=== PATIENT | male | born 1960 | race Asian ===

== ENCOUNTER 2018-10-19 17:28 | Inpatient (IN) | payer OTHER ==
[~2018-10-19] VITALS: Ht 177.8 cm; Wt 74.4 kg
[2018-10-19] MEDS ORDERED: ACETAMINOPHEN 650 MG/20.3 ML SOLUTION UDCUP GT PRN ×2 (20:30)
[2018-10-19] MEDS ORDERED: HALOPERIDOL LACTATE 5 MG/ML VIAL IM PRN (20:30)
[2018-10-19] MEDS ORDERED: DOCUSATE SODIUM 283 MG/5 ML MINI-ENEMA PR PRN (20:30)
[2018-10-19] MEDS: DOCUSATE SODIUM 100 MG CAPSULE GT SCH (21:39)
[2018-10-19 22:18] VITALS: BP 133/67
[2018-10-19] MEDS: CHLORHEXIDINE GLUCONATE 0.12% 15 ML UDCUP ORAL RINSE PO SCH (23:28)
[2018-10-19] MEDS ORDERED: INSULIN REGULAR, HUMAN 100 UNITS/ML SQ PRN (23:30)
[2018-10-19] MEDS ORDERED: DEXTROSE 50%-WATER 25 GM/50 ML SYRINGE IVP PRN (23:30)
[2018-10-20] VITALS: BP 112/71
[2018-10-20 00:04] LABS: GLUCOMETER DEV NAME(LOC) 2WR.2; GLUCOSE,POINT OF CARE 130 MG/DL (70-110)
[2018-10-20 00:04] LABS: GLUCOMETER DEV NAME(LOC) 2WR.2; GLUCOSE,POINT OF CARE 93 MG/DL (70-110)
[2018-10-20 05:44] LABS: GLUCOMETER DEV NAME(LOC) 2WR.2; GLUCOSE,POINT OF CARE 109 MG/DL (70-110)
[2018-10-20 06:50] LABS: BASOPHILS % (AUTO) 0.2 % (0.0-2.0); EOSINOPHILS % (AUTO) 4.6 % (1.0-6.0); HEMATOCRIT 46.2 % (41-53); HEMOGLOBIN 15.5 g/dL (13.5-17.5); LYMPHOCYTES # (AUTO) 2.9 K/uL (1.0-4.8); LYMPHOCYTES % (AUTO) 21.5 % (22.0-44.0); MEAN CORPUSCULAR HEMOGLOBIN 30.8 pg (26.0-34.0); MEAN CORPUSCULAR HGB CONC 33.5 G/dL (31.0-37.0); MEAN CORPUSCULAR VOLUME 92 fL (80-100); MONOCYTES # (AUTO) 1.3 K/uL (0.1-1.0); MONOCYTES % (AUTO) 9.5 % (2.0-9.0); NEUTROPHILS # (AUTO) 8.7 K/uL (1.8-7.7); NEUTROPHILS % (AUTO) 64.2 % (40.0-70.0); PLATELET COUNT (AUTO) 359 K/uL (150-450); RED BLOOD CELL COUNT(AUTO) 5.03 MIL/uL (4.50-5.90); RED CELL DISTRIBUTION WIDTH 13.1 % (11.5-14.5)
[2018-10-20 07:00] LABS: ALANINE AMINOTRANSFERASE 304 U/L (12-78); ALBUMIN 2.6 g/dL (3.4-5.0); ALKALINE PHOSPHATASE 137 U/L (46-116); ANION GAP 5 mmol/L (8-16); ASPARTATE AMINOTRANSFERASE 101 U/L (15-37); BILIRUBIN,TOTAL 0.3 mg/dL (0.1-1.0); CALCIUM, TOTAL 8.5 mg/dL (8.8-10.5); CARBON DIOXIDE 31 mmol/L (22-29); CHLORIDE 101 mmol/L (98-107); CREATININE 1.05 mg/dL (0.60-1.30); GLOMERULAR FILTR. RATE CALC > 60 mL/min (>60); GLUCOSE,RANDOM 110 mg/dL (70-110); POTASSIUM 4.2 mmol/L (3.5-5.1); SODIUM SERUM 137 mmol/L (136-145); TOTAL PROTEIN, SERUM 7.5 g/dL (6.4-8.2); UREA NITROGEN, BLOOD 27 mg/dL (7-18)
[2018-10-20 07:30] VITALS: BP 98/63
[2018-10-20] MEDS: DOCUSATE SODIUM 100 MG CAPSULE GT SCH ×2 (07:46→20:10)
[2018-10-20] MEDS: CHLORHEXIDINE GLUCONATE 0.12% 15 ML UDCUP ORAL RINSE PO SCH ×2 (07:46→20:11)
[2018-10-20] MEDS: LISINOPRIL 20 MG TABLET GT SCH (07:53)
[2018-10-20] MEDS: AmLODIPine BESYLATE 10 MG TABLET GT SCH (07:53)
[2018-10-20 14:03] LABS: GLUCOMETER DEV NAME(LOC) 2WR.1; GLUCOSE,POINT OF CARE 102 MG/DL (70-110)
[2018-10-20 15:49] VITALS: BP 120/76
[2018-10-20 19:43] LABS: GLUCOMETER DEV NAME(LOC) 2WR.1; GLUCOSE,POINT OF CARE 106 MG/DL (70-110)
[2018-10-20] MEDS: FAMOTIDINE 20 MG TABLET GT SCH (20:11)
[2018-10-21 00:57] VITALS: BP 111/72
[2018-10-21 02:14] LABS: GLUCOMETER DEV NAME(LOC) 2WR.2; GLUCOSE,POINT OF CARE 103 MG/DL (70-110)
[2018-10-21 05:44] LABS: GLUCOMETER DEV NAME(LOC) 2WR.2; GLUCOSE,POINT OF CARE 98 MG/DL (70-110)
[2018-10-21 06:55] LABS: BASOPHILS % (AUTO) 0.5 % (0.0-2.0); EOSINOPHILS % (AUTO) 5.7 % (1.0-6.0); HEMATOCRIT 44.2 % (41-53); HEMOGLOBIN 14.9 g/dL (13.5-17.5); LYMPHOCYTES # (AUTO) 2.6 K/uL (1.0-4.8); LYMPHOCYTES % (AUTO) 19.3 % (22.0-44.0); MEAN CORPUSCULAR HEMOGLOBIN 30.2 pg (26.0-34.0); MEAN CORPUSCULAR HGB CONC 33.7 G/dL (31.0-37.0); MEAN CORPUSCULAR VOLUME 90 fL (80-100); MONOCYTES # (AUTO) 1.1 K/uL (0.1-1.0); MONOCYTES % (AUTO) 8.5 % (2.0-9.0); NEUTROPHILS # (AUTO) 8.8 K/uL (1.8-7.7); PLATELET COUNT (AUTO) 368 K/uL (150-450); RED BLOOD CELL COUNT(AUTO) 4.93 MIL/uL (4.50-5.90); RED CELL DISTRIBUTION WIDTH 13.1 % (11.5-14.5)
[2018-10-21 07:09] LABS: ALBUMIN 2.6 g/dL (3.4-5.0); BILIRUBIN,DIRECT 0.1 mg/dL (0.00-0.20); BILIRUBIN,TOTAL 0.3 mg/dL (0.1-1.0); TOTAL PROTEIN, SERUM 7.7 g/dL (6.4-8.2)
[2018-10-21 07:20] VITALS: BP 108/75
[2018-10-21] MEDS: LISINOPRIL 20 MG TABLET GT SCH (08:05)
[2018-10-21] MEDS: DOCUSATE SODIUM 100 MG CAPSULE GT SCH ×2 (08:05→20:04)
[2018-10-21] MEDS: CHLORHEXIDINE GLUCONATE 0.12% 15 ML UDCUP ORAL RINSE PO SCH ×2 (08:05→20:04)
[2018-10-21] MEDS: FAMOTIDINE 20 MG TABLET GT SCH ×2 (08:05→20:04)
[2018-10-21] MEDS: AmLODIPine BESYLATE 10 MG TABLET GT SCH (08:05)
[2018-10-21 10:50] LABS: APPEARANCE,URINE CLEAR (CLEAR); BILIRUBIN,URINE NEGATIVE (NEGATIVE); GLUCOSE, URINE (UA) NEGATIVE (NEGATIVE); KETONES,URINE NEGATIVE (NEGATIVE); LEUKOCYTE ESTERASE ,URINE NEGATIVE (NEGATIVE); NITRATE,URINE NEGATIVE (NEGATIVE); OCCULT BLOOD,URINE NEGATIVE (NEGATIVE); PH,URINE 6.5 (5.0-8.0); PROTEIN,URINE NEGATIVE (NEGATIVE); UROBILINOGEN,URINE 0.2 mg/dL (<=1.0)
[2018-10-21 10:55] LABS: BACTERIA,URINE None Seen /HPF (None Seen); RBC,URINE None Seen /HPF (0-2); WBC,URINE None Seen /HPF (0-5)
[2018-10-21 12:44] LABS: GLUCOMETER DEV NAME(LOC) 2WR.2; GLUCOSE,POINT OF CARE 113 MG/DL (70-110)
[2018-10-21 15:07] VITALS: BP 102/69
[2018-10-21 18:24] LABS: GLUCOMETER DEV NAME(LOC) 2WR.1; GLUCOSE,POINT OF CARE 114 MG/DL (70-110)
[2018-10-21] MEDS: MELATONIN 3 MG TABLET PO PRN (20:04)
[2018-10-21] MEDS: ENOXAPARIN SODIUM 30 MG/0.3 ML PF SYRINGE SQ SCH (20:04)
[2018-10-22] VITALS: BP 113/69
[2018-10-22 02:09] LABS: GLUCOMETER DEV NAME(LOC) 2WR.1; GLUCOSE,POINT OF CARE 95 MG/DL (70-110)
[2018-10-22 06:35] LABS: GLUCOMETER DEV NAME(LOC) 2WR.2; GLUCOSE,POINT OF CARE 103 MG/DL (70-110)
[2018-10-22 08:07] VITALS: BP 116/76
[2018-10-22] MEDS: ENOXAPARIN SODIUM 30 MG/0.3 ML PF SYRINGE SQ SCH ×2 (09:24→21:19)
[2018-10-22] MEDS: LISINOPRIL 20 MG TABLET GT SCH (09:24)
[2018-10-22] MEDS: FAMOTIDINE 20 MG TABLET GT SCH ×2 (09:24→21:19)
[2018-10-22] MEDS: CHLORHEXIDINE GLUCONATE 0.12% 15 ML UDCUP ORAL RINSE PO SCH ×2 (09:24→21:19)
[2018-10-22] MEDS: AmLODIPine BESYLATE 10 MG TABLET GT SCH (09:24)
[2018-10-22] MEDS: DOCUSATE SODIUM 100 MG CAPSULE GT SCH ×2 (09:24→21:19)
[2018-10-22 12:04] LABS: GLUCOMETER DEV NAME(LOC) 2WR.2; GLUCOSE,POINT OF CARE 109 MG/DL (70-110)
[2018-10-22 16:08] VITALS: BP 116/75
[2018-10-22 18:44] LABS: GLUCOMETER DEV NAME(LOC) 2WR.2; GLUCOSE,POINT OF CARE 102 MG/DL (70-110)
[2018-10-22] MEDS: MELATONIN 3 MG TABLET PO PRN (21:20)
[2018-10-22 23:49] VITALS: BP 122/73
[2018-10-22 23:49] LABS: GLUCOMETER DEV NAME(LOC) 2WR.2; GLUCOSE,POINT OF CARE 100 MG/DL (70-110)
[2018-10-23 05:39] LABS: GLUCOMETER DEV NAME(LOC) 2WR.1; GLUCOSE,POINT OF CARE 99 MG/DL (70-110)
[2018-10-23] MEDS: LISINOPRIL 20 MG TABLET GT SCH (08:42)
[2018-10-23] MEDS: FAMOTIDINE 20 MG TABLET GT SCH ×2 (08:42→20:21)
[2018-10-23] MEDS: DOCUSATE SODIUM 100 MG CAPSULE GT SCH ×2 (08:43→20:21)
[2018-10-23] MEDS: AmLODIPine BESYLATE 10 MG TABLET GT SCH (08:43)
[2018-10-23] MEDS: CHLORHEXIDINE GLUCONATE 0.12% 15 ML UDCUP ORAL RINSE PO SCH ×2 (08:43→20:21)
[2018-10-23] MEDS: ENOXAPARIN SODIUM 30 MG/0.3 ML PF SYRINGE SQ SCH ×2 (08:43→20:22)
[2018-10-23 08:53] VITALS: BP 114/91
[2018-10-23 08:54] VITALS: BP 101/77
[2018-10-23 15:45] VITALS: BP 105/68
[2018-10-23 18:39] LABS: GLUCOMETER DEV NAME(LOC) 2WR.1; GLUCOSE,POINT OF CARE 100 MG/DL (70-110)
[2018-10-23 23:47] VITALS: BP 128/88
[2018-10-24] MEDS: MELATONIN 3 MG TABLET PO PRN (00:21)
[2018-10-24 05:39] LABS: GLUCOMETER DEV NAME(LOC) 2WR.2; GLUCOSE,POINT OF CARE 108 MG/DL (70-110)
[2018-10-24 08:10] VITALS: BP 123/81
[2018-10-24] MEDS: LISINOPRIL 20 MG TABLET GT SCH (09:23)
[2018-10-24] MEDS: FAMOTIDINE 20 MG TABLET GT SCH ×2 (09:24→21:06)
[2018-10-24] MEDS: AmLODIPine BESYLATE 10 MG TABLET GT SCH (09:24)
[2018-10-24] MEDS: CHLORHEXIDINE GLUCONATE 0.12% 15 ML UDCUP ORAL RINSE PO SCH ×2 (09:24→21:06)
[2018-10-24] MEDS: ENOXAPARIN SODIUM 30 MG/0.3 ML PF SYRINGE SQ SCH ×2 (09:24→21:06)
[2018-10-24] MEDS: DOCUSATE SODIUM 100 MG CAPSULE GT SCH ×2 (09:24→21:00)
[2018-10-24] MEDS: NICOTINE 21 MG/24 HOUR PATCH TD SCH (12:20)
[2018-10-24 15:30] VITALS: BP 101/67
[2018-10-24] MEDS: DOCUSATE SODIUM 283 MG/5 ML MINI-ENEMA PR SCH (19:37)
[2018-10-24] MEDS ORDERED: TraZODone HCL 50 MG TABLET PO SCH (21:00)
[2018-10-24 21:59] LABS: GLUCOMETER DEV NAME(LOC) 2WR.2; GLUCOSE,POINT OF CARE 113 MG/DL (70-110)
[2018-10-25 00:21] VITALS: BP 108/69
[2018-10-25 05:39] LABS: GLUCOMETER DEV NAME(LOC) 2WR.1; GLUCOSE,POINT OF CARE 106 MG/DL (70-110)
[2018-10-25 06:27] LABS: BASOPHILS % (AUTO) 0.6 % (0.0-2.0); EOSINOPHILS % (AUTO) 6.8 % (1.0-6.0); HEMATOCRIT 45.1 % (41-53); HEMOGLOBIN 14.9 g/dL (13.5-17.5); LYMPHOCYTES # (AUTO) 3.3 K/uL (1.0-4.8); LYMPHOCYTES % (AUTO) 22.5 % (22.0-44.0); MEAN CORPUSCULAR HEMOGLOBIN 29.8 pg (26.0-34.0); MEAN CORPUSCULAR HGB CONC 33.1 G/dL (31.0-37.0); MEAN CORPUSCULAR VOLUME 90 fL (80-100); MONOCYTES # (AUTO) 1.3 K/uL (0.1-1.0); MONOCYTES % (AUTO) 8.6 % (2.0-9.0); NEUTROPHILS # (AUTO) 9.1 K/uL (1.8-7.7); NEUTROPHILS % (AUTO) 61.5 % (40.0-70.0); PLATELET COUNT (AUTO) 341 K/uL (150-450); RED BLOOD CELL COUNT(AUTO) 5.01 MIL/uL (4.50-5.90); RED CELL DISTRIBUTION WIDTH 13.3 % (11.5-14.5)
[2018-10-25 06:57] LABS: ALANINE AMINOTRANSFERASE 262 U/L (12-78); ALBUMIN 2.7 g/dL (3.4-5.0); ALKALINE PHOSPHATASE 118 U/L (46-116); ANION GAP 4 mmol/L (8-16); ASPARTATE AMINOTRANSFERASE 87 U/L (15-37); BILIRUBIN,TOTAL 0.3 mg/dL (0.1-1.0); CALCIUM, TOTAL 8.8 mg/dL (8.8-10.5); CARBON DIOXIDE 32 mmol/L (22-29); CHLORIDE 100 mmol/L (98-107); CREATININE 1.03 mg/dL (0.60-1.30); GLOMERULAR FILTR. RATE CALC > 60 mL/min (>60); GLUCOSE,RANDOM 93 mg/dL (70-110); POTASSIUM 4.1 mmol/L (3.5-5.1); SODIUM SERUM 136 mmol/L (136-145); TOTAL PROTEIN, SERUM 7.5 g/dL (6.4-8.2); UREA NITROGEN, BLOOD 22 mg/dL (7-18)
[2018-10-25 08:00] VITALS: BP 114/70
[2018-10-25] MEDS: CHLORHEXIDINE GLUCONATE 0.12% 15 ML UDCUP ORAL RINSE PO SCH ×2 (08:20→20:27)
[2018-10-25] MEDS: LISINOPRIL 20 MG TABLET GT SCH (08:21)
[2018-10-25] MEDS: FAMOTIDINE 20 MG TABLET GT SCH (08:21)
[2018-10-25] MEDS: AmLODIPine BESYLATE 10 MG TABLET GT SCH (08:21)
[2018-10-25] MEDS: NICOTINE 21 MG/24 HOUR PATCH TD SCH (08:21)
[2018-10-25] MEDS: DOCUSATE SODIUM 100 MG CAPSULE GT SCH (08:21)
[2018-10-25] MEDS: ENOXAPARIN SODIUM 30 MG/0.3 ML PF SYRINGE SQ SCH ×2 (08:21→20:27)
[2018-10-25 13:40] VITALS: BP 85/57
[2018-10-25 15:30] VITALS: BP 101/76
[2018-10-25] MEDS ORDERED: ACETAMINOPHEN 325 MG TABLET PO PRN ×2 (16:00)
[2018-10-25] MEDS: DOCUSATE SODIUM 283 MG/5 ML MINI-ENEMA PR SCH (18:27)
[2018-10-25] MEDS: DOCUSATE SODIUM 100 MG CAPSULE PO SCH (20:27)
[2018-10-25] MEDS: TEMAZEPAM 15 MG CAPSULE PO SCH (20:27)
[2018-10-25] MEDS: FAMOTIDINE 20 MG TABLET PO SCH (20:27)
[2018-10-26] VITALS: BP 106/81
[2018-10-26 08:00] VITALS: BP 116/63
[2018-10-26] MEDS: LISINOPRIL 20 MG TABLET PO SCH (08:10)
[2018-10-26] MEDS: ENOXAPARIN SODIUM 30 MG/0.3 ML PF SYRINGE SQ SCH ×2 (08:10→20:56)
[2018-10-26] MEDS: NICOTINE 21 MG/24 HOUR PATCH TD SCH (08:10)
[2018-10-26] MEDS: AmLODIPine BESYLATE 10 MG TABLET PO SCH (08:10)
[2018-10-26] MEDS: CHLORHEXIDINE GLUCONATE 0.12% 15 ML UDCUP ORAL RINSE PO SCH ×2 (08:10→20:56)
[2018-10-26] MEDS: FAMOTIDINE 20 MG TABLET PO SCH ×2 (08:11→20:57)
[2018-10-26] MEDS: DOCUSATE SODIUM 100 MG CAPSULE PO SCH ×2 (08:11→20:57)
[2018-10-26 15:25] VITALS: BP 103/69
[2018-10-26] MEDS: DOCUSATE SODIUM 283 MG/5 ML MINI-ENEMA PR SCH (18:54)
[2018-10-26] MEDS: TEMAZEPAM 15 MG CAPSULE PO SCH (20:57)
[2018-10-27 00:28] VITALS: BP 111/73
[2018-10-27] MEDS: FAMOTIDINE 20 MG TABLET PO SCH ×2 (07:45→20:34)
[2018-10-27] MEDS: ENOXAPARIN SODIUM 30 MG/0.3 ML PF SYRINGE SQ SCH ×2 (07:45→20:34)
[2018-10-27] MEDS: NICOTINE 21 MG/24 HOUR PATCH TD SCH (07:45)
[2018-10-27] MEDS: AmLODIPine BESYLATE 10 MG TABLET PO SCH (07:46)
[2018-10-27] MEDS: LISINOPRIL 20 MG TABLET PO SCH (07:46)
[2018-10-27] MEDS: CHLORHEXIDINE GLUCONATE 0.12% 15 ML UDCUP ORAL RINSE PO SCH ×2 (07:46→20:33)
[2018-10-27] MEDS: DOCUSATE SODIUM 100 MG CAPSULE PO SCH ×2 (07:46→20:34)
[2018-10-27 08:00] VITALS: BP 122/88
[2018-10-27 15:48] VITALS: BP 95/59
[2018-10-27] MEDS: TEMAZEPAM 15 MG CAPSULE PO SCH (20:34)
[2018-10-28 01:04] VITALS: BP 123/80
[2018-10-28 07:33] VITALS: BP 116/78
[2018-10-28] MEDS: CHLORHEXIDINE GLUCONATE 0.12% 15 ML UDCUP ORAL RINSE PO SCH ×2 (08:02→20:37)
[2018-10-28] MEDS: ENOXAPARIN SODIUM 30 MG/0.3 ML PF SYRINGE SQ SCH ×2 (08:02→20:37)
[2018-10-28] MEDS: LISINOPRIL 20 MG TABLET PO SCH (08:03)
[2018-10-28] MEDS: AmLODIPine BESYLATE 10 MG TABLET PO SCH (08:04)
[2018-10-28] MEDS: DOCUSATE SODIUM 100 MG CAPSULE PO SCH ×2 (08:04→20:37)
[2018-10-28] MEDS: NICOTINE 21 MG/24 HOUR PATCH TD SCH (08:04)
[2018-10-28] MEDS: FAMOTIDINE 20 MG TABLET PO SCH ×2 (08:04→20:37)
[2018-10-28 15:50] VITALS: BP 98/68
[2018-10-28 20:35] VITALS: BP 118/87
[2018-10-28] MEDS: TEMAZEPAM 15 MG CAPSULE PO SCH (20:37)
[2018-10-29] VITALS: BP 116/80
[2018-10-29 08:45] VITALS: BP 110/77
[2018-10-29] MEDS: DOCUSATE SODIUM 100 MG CAPSULE PO SCH ×2 (08:49→21:11)
[2018-10-29] MEDS: ENOXAPARIN SODIUM 30 MG/0.3 ML PF SYRINGE SQ SCH ×2 (08:49→21:11)
[2018-10-29] MEDS: NICOTINE 21 MG/24 HOUR PATCH TD SCH (08:49)
[2018-10-29] MEDS: CHLORHEXIDINE GLUCONATE 0.12% 15 ML UDCUP ORAL RINSE PO SCH ×2 (08:49→21:11)
[2018-10-29] MEDS: LISINOPRIL 20 MG TABLET PO SCH (08:50)
[2018-10-29] MEDS: AmLODIPine BESYLATE 10 MG TABLET PO SCH (08:50)
[2018-10-29] MEDS: FAMOTIDINE 20 MG TABLET PO SCH ×2 (08:50→21:12)
[2018-10-29 19:52] VITALS: BP 113/60
[2018-10-29] MEDS: TEMAZEPAM 15 MG CAPSULE PO SCH (21:12)
[2018-10-30 00:44] VITALS: BP 106/80
[2018-10-30 08:00] VITALS: BP 104/74
[2018-10-30] MEDS: FAMOTIDINE 20 MG TABLET PO SCH ×2 (09:16→20:59)
[2018-10-30] MEDS: LISINOPRIL 20 MG TABLET PO SCH (09:16)
[2018-10-30] MEDS: ENOXAPARIN SODIUM 30 MG/0.3 ML PF SYRINGE SQ SCH ×2 (09:16→20:59)
[2018-10-30] MEDS: CHLORHEXIDINE GLUCONATE 0.12% 15 ML UDCUP ORAL RINSE PO SCH ×2 (09:16→20:59)
[2018-10-30] MEDS: NICOTINE 21 MG/24 HOUR PATCH TD SCH (09:16)
[2018-10-30] MEDS: AmLODIPine BESYLATE 10 MG TABLET PO SCH (09:16)
[2018-10-30] MEDS: DOCUSATE SODIUM 100 MG CAPSULE PO SCH ×2 (09:17→20:59)
[2018-10-30 15:37] VITALS: BP 111/74
[2018-10-30] MEDS: TEMAZEPAM 15 MG CAPSULE PO SCH (20:59)
[2018-10-31] VITALS: BP 116/75
[2018-10-31 08:00] VITALS: BP 112/80
[2018-10-31] MEDS: NICOTINE 21 MG/24 HOUR PATCH TD SCH (08:20)
[2018-10-31] MEDS: ENOXAPARIN SODIUM 30 MG/0.3 ML PF SYRINGE SQ SCH ×2 (08:20→20:52)
[2018-10-31] MEDS: AmLODIPine BESYLATE 10 MG TABLET PO SCH (08:22)
[2018-10-31] MEDS: FAMOTIDINE 20 MG TABLET PO SCH ×2 (08:22→20:53)
[2018-10-31] MEDS: LISINOPRIL 20 MG TABLET PO SCH (08:22)
[2018-10-31] MEDS: CHLORHEXIDINE GLUCONATE 0.12% 15 ML UDCUP ORAL RINSE PO SCH ×2 (08:22→20:53)
[2018-10-31] MEDS: DOCUSATE SODIUM 100 MG CAPSULE PO SCH (08:23)
[2018-10-31 16:25] VITALS: BP 113/58
[2018-10-31] MEDS: TEMAZEPAM 15 MG CAPSULE PO SCH (20:53)
[2018-10-31] MEDS: DOCUSATE SODIUM 250 MG CAPSULE PO SCH (20:54)
[2018-11-01 01:39] VITALS: BP 121/69
[2018-11-01 08:00] VITALS: BP 110/68
[2018-11-01] MEDS: AmLODIPine BESYLATE 10 MG TABLET PO SCH (08:01)
[2018-11-01] MEDS: CHLORHEXIDINE GLUCONATE 0.12% 15 ML UDCUP ORAL RINSE PO SCH ×2 (08:01→20:57)
[2018-11-01] MEDS: DOCUSATE SODIUM 250 MG CAPSULE PO SCH ×2 (08:01→20:57)
[2018-11-01] MEDS: NICOTINE 21 MG/24 HOUR PATCH TD SCH (08:01)
[2018-11-01] MEDS: ENOXAPARIN SODIUM 30 MG/0.3 ML PF SYRINGE SQ SCH ×2 (08:01→20:57)
[2018-11-01] MEDS: LISINOPRIL 20 MG TABLET PO SCH (08:01)
[2018-11-01] MEDS: FAMOTIDINE 20 MG TABLET PO SCH ×2 (08:03→20:57)
[2018-11-01] MEDS: DICLOFENAC SODIUM 1% 100 GM GEL [2GM] TP PRN (10:10)
[2018-11-01 15:52] VITALS: BP 98/57
[2018-11-01] MEDS: TEMAZEPAM 15 MG CAPSULE PO SCH (20:57)
[2018-11-02] VITALS: BP 97/62
[2018-11-02 07:30] VITALS: BP 119/80
[2018-11-02] MEDS: DOCUSATE SODIUM 250 MG CAPSULE PO SCH ×2 (08:27→21:17)
[2018-11-02] MEDS: FAMOTIDINE 20 MG TABLET PO SCH ×2 (08:27→21:17)
[2018-11-02] MEDS: NICOTINE 21 MG/24 HOUR PATCH TD SCH (08:28)
[2018-11-02] MEDS: ENOXAPARIN SODIUM 30 MG/0.3 ML PF SYRINGE SQ SCH ×2 (08:28→21:17)
[2018-11-02] MEDS: AmLODIPine BESYLATE 10 MG TABLET PO SCH (08:29)
[2018-11-02] MEDS: CHLORHEXIDINE GLUCONATE 0.12% 15 ML UDCUP ORAL RINSE PO SCH ×2 (08:30→21:17)
[2018-11-02] MEDS: LISINOPRIL 20 MG TABLET PO SCH (09:00)
[2018-11-02 10:00] VITALS: BP 91/58
[2018-11-02 12:00] VITALS: BP 101/69
[2018-11-02 17:35] VITALS: BP 105/77
[2018-11-02] MEDS: TEMAZEPAM 15 MG CAPSULE PO SCH (21:17)
[2018-11-03] VITALS: BP 100/75
[2018-11-03 07:29] VITALS: BP 115/83
[2018-11-03] MEDS: CHLORHEXIDINE GLUCONATE 0.12% 15 ML UDCUP ORAL RINSE PO SCH ×2 (08:08→21:39)
[2018-11-03] MEDS: ENOXAPARIN SODIUM 30 MG/0.3 ML PF SYRINGE SQ SCH ×2 (08:08→21:39)
[2018-11-03] MEDS: FAMOTIDINE 20 MG TABLET PO SCH ×2 (08:08→21:40)
[2018-11-03] MEDS: NICOTINE 21 MG/24 HOUR PATCH TD SCH (08:08)
[2018-11-03] MEDS: AmLODIPine BESYLATE 10 MG TABLET PO SCH (08:09)
[2018-11-03] MEDS: DOCUSATE SODIUM 250 MG CAPSULE PO SCH ×2 (08:09→21:40)
[2018-11-03] MEDS: LISINOPRIL 20 MG TABLET PO SCH (08:09)
[2018-11-03 16:00] VITALS: BP 102/72
[2018-11-03] MEDS: TEMAZEPAM 15 MG CAPSULE PO SCH (21:40)
[2018-11-04] VITALS: BP 111/77
[2018-11-04 08:00] VITALS: BP 125/85
[2018-11-04] MEDS: AmLODIPine BESYLATE 10 MG TABLET PO SCH (08:27)
[2018-11-04] MEDS: CHLORHEXIDINE GLUCONATE 0.12% 15 ML UDCUP ORAL RINSE PO SCH ×2 (08:27→21:03)
[2018-11-04] MEDS: FAMOTIDINE 20 MG TABLET PO SCH ×2 (08:27→21:04)
[2018-11-04] MEDS: DOCUSATE SODIUM 250 MG CAPSULE PO SCH ×2 (08:27→21:03)
[2018-11-04] MEDS: ENOXAPARIN SODIUM 30 MG/0.3 ML PF SYRINGE SQ SCH ×2 (08:28→21:03)
[2018-11-04] MEDS: LISINOPRIL 20 MG TABLET PO SCH (08:28)
[2018-11-04] MEDS: NICOTINE 21 MG/24 HOUR PATCH TD SCH (08:28)
[2018-11-04 16:21] VITALS: BP 125/84
[2018-11-04] MEDS: TEMAZEPAM 15 MG CAPSULE PO SCH (21:04)
[2018-11-05 00:51] VITALS: BP 108/69
[2018-11-05] MEDS ORDERED: LISI-662 PO (07:25)
[2018-11-05] MEDS ORDERED: DOCU250C91 PO (07:25)
[2018-11-05] MEDS ORDERED: AMLO-512 PO (07:25)
[2018-11-05] MEDS ORDERED: FAMO20 PO (07:25)
[2018-11-05] MEDS ORDERED: TEMA15CA PO (07:25)
[2018-11-05] MEDS ORDERED: PERID15L MM (07:25)
[2018-11-05] MEDS ORDERED: NICO-704 TD (07:25)
[2018-11-05] MEDS ORDERED: DICL2100G TP (07:27)
[2018-11-05 08:00] VITALS: BP 105/76
[2018-11-05] MEDS: AmLODIPine BESYLATE 10 MG TABLET PO SCH ×2 (09:00→12:56)
[2018-11-05] MEDS: LISINOPRIL 20 MG TABLET PO SCH (09:00)
[2018-11-05] MEDS: ENOXAPARIN SODIUM 30 MG/0.3 ML PF SYRINGE SQ SCH ×2 (09:05→20:08)
[2018-11-05] MEDS: DOCUSATE SODIUM 250 MG CAPSULE PO SCH ×2 (09:05→20:08)
[2018-11-05] MEDS: FAMOTIDINE 20 MG TABLET PO SCH ×2 (09:05→20:08)
[2018-11-05] MEDS: CHLORHEXIDINE GLUCONATE 0.12% 15 ML UDCUP ORAL RINSE PO SCH ×2 (09:05→20:08)
[2018-11-05] MEDS: NICOTINE 21 MG/24 HOUR PATCH TD SCH (09:06)
[2018-11-05 11:39] VITALS: BP 112/81
[2018-11-05] MEDS: DICLOFENAC SODIUM 1% 100 GM GEL [2GM] TP PRN (13:48)
[2018-11-05 16:13] VITALS: BP 99/73
[2018-11-05] MEDS: TEMAZEPAM 15 MG CAPSULE PO SCH (22:12)
[2018-11-05 23:29] VITALS: BP 119/90
[2018-11-06 08:00] VITALS: BP 113/84
[2018-11-06] MEDS: LISINOPRIL 20 MG TABLET PO SCH (08:25)
[2018-11-06] MEDS: DOCUSATE SODIUM 250 MG CAPSULE PO SCH ×2 (08:25→20:14)
[2018-11-06] MEDS: FAMOTIDINE 20 MG TABLET PO SCH ×2 (08:25→20:13)
[2018-11-06] MEDS: CHLORHEXIDINE GLUCONATE 0.12% 15 ML UDCUP ORAL RINSE PO SCH ×2 (08:25→20:13)
[2018-11-06] MEDS: ENOXAPARIN SODIUM 30 MG/0.3 ML PF SYRINGE SQ SCH ×2 (08:25→20:13)
[2018-11-06] MEDS: AmLODIPine BESYLATE 10 MG TABLET PO SCH (08:25)
[2018-11-06] MEDS: NICOTINE 21 MG/24 HOUR PATCH TD SCH (08:25)
[2018-11-06 16:04] VITALS: BP 119/75
[2018-11-06] MEDS: TEMAZEPAM 15 MG CAPSULE PO SCH (20:13)
[2018-11-06] MEDS: COLD CREAM, SKIN EMOLLIENT 340 GM JAR TP SCH (20:14)
[2018-11-07 01:14] VITALS: BP 92/68
[2018-11-07 07:31] VITALS: BP 128/72
[2018-11-07] MEDS: DOCUSATE SODIUM 250 MG CAPSULE PO SCH ×2 (08:08→20:44)
[2018-11-07] MEDS: ENOXAPARIN SODIUM 30 MG/0.3 ML PF SYRINGE SQ SCH ×2 (08:08→20:44)
[2018-11-07] MEDS: CHLORHEXIDINE GLUCONATE 0.12% 15 ML UDCUP ORAL RINSE PO SCH ×2 (08:08→20:44)
[2018-11-07] MEDS: AmLODIPine BESYLATE 10 MG TABLET PO SCH (08:09)
[2018-11-07] MEDS: NICOTINE 21 MG/24 HOUR PATCH TD SCH (08:10)
[2018-11-07] MEDS: FAMOTIDINE 20 MG TABLET PO SCH ×2 (08:10→20:44)
[2018-11-07] MEDS: LISINOPRIL 20 MG TABLET PO SCH (08:10)
[2018-11-07 15:20] VITALS: BP 130/79
[2018-11-07] MEDS: TEMAZEPAM 15 MG CAPSULE PO SCH (20:44)
[2018-11-07] MEDS: COLD CREAM, SKIN EMOLLIENT 340 GM JAR TP SCH (20:44)
[2018-11-08] VITALS: BP 111/69
[2018-11-08 06:36] LABS: BAND NEUTROPHILS % (MANUAL) 0 % (0-5)
[2018-11-08 06:47] LABS: HEMATOCRIT 41.7 % (41-53); HEMOGLOBIN 14.5 g/dL (13.5-17.5); MEAN CORPUSCULAR HEMOGLOBIN 31.6 pg (26.0-34.0); MEAN CORPUSCULAR HGB CONC 34.9 G/dL (31.0-37.0); MEAN CORPUSCULAR VOLUME 91 fL (80-100); PLATELET COUNT (AUTO) 264 K/uL (150-450); RED BLOOD CELL COUNT(AUTO) 4.61 MIL/uL (4.50-5.90); RED CELL DISTRIBUTION WIDTH 13.4 % (11.5-14.5)
[2018-11-08 07:24] LABS: ALANINE AMINOTRANSFERASE 86 U/L (12-78); ALKALINE PHOSPHATASE 76 U/L (46-116); ANION GAP 4 mmol/L (8-16); ASPARTATE AMINOTRANSFERASE 34 U/L (15-37); BILIRUBIN,TOTAL 0.4 mg/dL (0.1-1.0); CARBON DIOXIDE 30 mmol/L (22-29); CHLORIDE 98 mmol/L (98-107); CREATININE 0.87 mg/dL (0.60-1.30); GLOMERULAR FILTR. RATE CALC > 60 mL/min (>60); GLUCOSE,RANDOM 91 mg/dL (70-110); POTASSIUM 3.8 mmol/L (3.5-5.1); SODIUM SERUM 132 mmol/L (136-145); TOTAL PROTEIN, SERUM 7.1 g/dL (6.4-8.2); UREA NITROGEN, BLOOD 10 mg/dL (7-18)
[2018-11-08 08:00] VITALS: BP 136/95
[2018-11-08] MEDS: AmLODIPine BESYLATE 10 MG TABLET PO SCH (08:05)
[2018-11-08] MEDS: FAMOTIDINE 20 MG TABLET PO SCH ×2 (08:05→20:52)
[2018-11-08] MEDS: NICOTINE 21 MG/24 HOUR PATCH TD SCH (08:05)
[2018-11-08] MEDS: LISINOPRIL 20 MG TABLET PO SCH (08:05)
[2018-11-08] MEDS: DOCUSATE SODIUM 250 MG CAPSULE PO SCH ×2 (08:05→20:52)
[2018-11-08] MEDS: ENOXAPARIN SODIUM 30 MG/0.3 ML PF SYRINGE SQ SCH ×2 (08:05→20:52)
[2018-11-08] MEDS: CHLORHEXIDINE GLUCONATE 0.12% 15 ML UDCUP ORAL RINSE PO SCH ×2 (08:05→20:52)
[2018-11-08 08:43] LABS: EOSINOPHILS % (MANUAL) 3 % (1-6); LYMPHOCYTES % (MANUAL) 36 % (22-44); MONOCYTES % (MANUAL) 8 % (2-9); SEGMENTED NEUTROPHILS % 53 % (40-70)
[2018-11-08 16:41] VITALS: BP 128/92
[2018-11-08] MEDS: TEMAZEPAM 15 MG CAPSULE PO SCH (20:52)
[2018-11-08] MEDS: COLD CREAM, SKIN EMOLLIENT 340 GM JAR TP SCH (20:53)
[2018-11-09 00:30] VITALS: BP 109/75
[2018-11-09 07:40] VITALS: BP 126/78
[2018-11-09] MEDS: ENOXAPARIN SODIUM 30 MG/0.3 ML PF SYRINGE SQ SCH ×2 (08:01→20:28)
[2018-11-09] MEDS: CHLORHEXIDINE GLUCONATE 0.12% 15 ML UDCUP ORAL RINSE PO SCH ×2 (08:01→20:28)
[2018-11-09] MEDS: LISINOPRIL 20 MG TABLET PO SCH (08:01)
[2018-11-09] MEDS: NICOTINE 21 MG/24 HOUR PATCH TD SCH (08:01)
[2018-11-09] MEDS: FAMOTIDINE 20 MG TABLET PO SCH ×2 (08:02→20:28)
[2018-11-09] MEDS: AmLODIPine BESYLATE 10 MG TABLET PO SCH (08:02)
[2018-11-09] MEDS: DOCUSATE SODIUM 250 MG CAPSULE PO SCH ×2 (08:02→20:28)
[2018-11-09 15:16] VITALS: BP 100/67
[2018-11-09] MEDS: TEMAZEPAM 15 MG CAPSULE PO SCH (20:28)
[2018-11-09] MEDS: COLD CREAM, SKIN EMOLLIENT 340 GM JAR TP SCH (20:29)
[2018-11-10 05:04] VITALS: BP 124/86
[2018-11-10 07:15] VITALS: BP 136/90
[2018-11-10] MEDS: ENOXAPARIN SODIUM 30 MG/0.3 ML PF SYRINGE SQ SCH ×2 (08:33→20:24)
[2018-11-10] MEDS: FAMOTIDINE 20 MG TABLET PO SCH ×2 (08:33→20:24)
[2018-11-10] MEDS: DOCUSATE SODIUM 250 MG CAPSULE PO SCH ×2 (08:33→20:24)
[2018-11-10] MEDS: CHLORHEXIDINE GLUCONATE 0.12% 15 ML UDCUP ORAL RINSE PO SCH ×2 (08:33→20:23)
[2018-11-10] MEDS: NICOTINE 21 MG/24 HOUR PATCH TD SCH (08:33)
[2018-11-10] MEDS: AmLODIPine BESYLATE 10 MG TABLET PO SCH (08:34)
[2018-11-10] MEDS: LISINOPRIL 20 MG TABLET PO SCH (08:34)
[2018-11-10 15:30] VITALS: BP 115/83
[2018-11-10] MEDS: COLD CREAM, SKIN EMOLLIENT 340 GM JAR TP SCH (20:24)
[2018-11-10] MEDS: TEMAZEPAM 15 MG CAPSULE PO SCH (20:24)
[2018-11-11 01:00] VITALS: BP 115/80
[2018-11-11 07:46] VITALS: BP 125/97
[2018-11-11] MEDS: LISINOPRIL 20 MG TABLET PO SCH (08:42)
[2018-11-11] MEDS: AmLODIPine BESYLATE 10 MG TABLET PO SCH (08:42)
[2018-11-11] MEDS: FAMOTIDINE 20 MG TABLET PO SCH ×2 (08:42→21:01)
[2018-11-11] MEDS: CHLORHEXIDINE GLUCONATE 0.12% 15 ML UDCUP ORAL RINSE PO SCH ×2 (08:42→21:01)
[2018-11-11] MEDS: ENOXAPARIN SODIUM 30 MG/0.3 ML PF SYRINGE SQ SCH ×2 (08:42→21:01)
[2018-11-11] MEDS: NICOTINE 21 MG/24 HOUR PATCH TD SCH (08:42)
[2018-11-11] MEDS: DOCUSATE SODIUM 250 MG CAPSULE PO SCH ×2 (08:43→21:01)
[2018-11-11 15:49] VITALS: BP 135/89
[2018-11-11 20:56] VITALS: BP 115/74
[2018-11-11] MEDS: TEMAZEPAM 15 MG CAPSULE PO SCH (21:01)
[2018-11-11] MEDS: COLD CREAM, SKIN EMOLLIENT 340 GM JAR TP SCH (21:01)
[2018-11-12 00:53] VITALS: BP 107/70
[2018-11-12 07:47] VITALS: BP 120/84
[2018-11-12] MEDS: AmLODIPine BESYLATE 10 MG TABLET PO SCH (08:33)
[2018-11-12] MEDS: LISINOPRIL 20 MG TABLET PO SCH (08:34)
[2018-11-12] MEDS: FAMOTIDINE 20 MG TABLET PO SCH ×2 (08:34→20:26)
[2018-11-12] MEDS: ENOXAPARIN SODIUM 30 MG/0.3 ML PF SYRINGE SQ SCH ×2 (08:35→20:25)
[2018-11-12] MEDS: DOCUSATE SODIUM 250 MG CAPSULE PO SCH ×2 (08:35→20:25)
[2018-11-12] MEDS: NICOTINE 21 MG/24 HOUR PATCH TD SCH (08:36)
[2018-11-12] MEDS: CHLORHEXIDINE GLUCONATE 0.12% 15 ML UDCUP ORAL RINSE PO SCH ×2 (08:38→20:26)
[2018-11-12 15:23] VITALS: BP 113/83
[2018-11-12] MEDS: TEMAZEPAM 15 MG CAPSULE PO SCH (20:25)
[2018-11-12] MEDS: COLD CREAM, SKIN EMOLLIENT 340 GM JAR TP SCH (20:26)
[2018-11-12 23:15] VITALS: BP 121/76
[2018-11-13 07:36] VITALS: BP 129/90
[2018-11-13] MEDS: NICOTINE 21 MG/24 HOUR PATCH TD SCH (08:03)
[2018-11-13] MEDS: DOCUSATE SODIUM 250 MG CAPSULE PO SCH ×2 (08:04→20:58)
[2018-11-13] MEDS: LISINOPRIL 20 MG TABLET PO SCH (08:04)
[2018-11-13] MEDS: ENOXAPARIN SODIUM 30 MG/0.3 ML PF SYRINGE SQ SCH ×2 (08:04→20:57)
[2018-11-13] MEDS: FAMOTIDINE 20 MG TABLET PO SCH ×2 (08:04→20:57)
[2018-11-13] MEDS: CHLORHEXIDINE GLUCONATE 0.12% 15 ML UDCUP ORAL RINSE PO SCH ×2 (08:04→20:58)
[2018-11-13] MEDS: AmLODIPine BESYLATE 10 MG TABLET PO SCH (08:04)
[2018-11-13 15:12] VITALS: BP 147/97
[2018-11-13] MEDS: TEMAZEPAM 15 MG CAPSULE PO SCH (20:58)
[2018-11-13] MEDS: COLD CREAM, SKIN EMOLLIENT 340 GM JAR TP SCH (20:59)
[2018-11-14] VITALS: BP 108/70
[2018-11-14 07:19] VITALS: BP 133/90
[2018-11-14] MEDS: CHLORHEXIDINE GLUCONATE 0.12% 15 ML UDCUP ORAL RINSE PO SCH ×2 (08:03→20:57)
[2018-11-14] MEDS: NICOTINE 21 MG/24 HOUR PATCH TD SCH (08:04)
[2018-11-14] MEDS: AmLODIPine BESYLATE 10 MG TABLET PO SCH (08:04)
[2018-11-14] MEDS: FAMOTIDINE 20 MG TABLET PO SCH ×2 (08:04→20:57)
[2018-11-14] MEDS: ENOXAPARIN SODIUM 30 MG/0.3 ML PF SYRINGE SQ SCH ×2 (08:04→20:57)
[2018-11-14] MEDS: DOCUSATE SODIUM 250 MG CAPSULE PO SCH ×2 (08:05→20:57)
[2018-11-14] MEDS: LISINOPRIL 20 MG TABLET PO SCH (08:05)
[2018-11-14 16:09] VITALS: BP 122/79
[2018-11-14] MEDS: COLD CREAM, SKIN EMOLLIENT 340 GM JAR TP SCH (20:57)
[2018-11-14] MEDS: TEMAZEPAM 15 MG CAPSULE PO SCH (20:57)
[2018-11-15] VITALS: BP 124/81
[2018-11-15] MEDS: NICOTINE 21 MG/24 HOUR PATCH TD SCH (07:41)
[2018-11-15] MEDS: CHLORHEXIDINE GLUCONATE 0.12% 15 ML UDCUP ORAL RINSE PO SCH ×2 (07:42→20:50)
[2018-11-15] MEDS: DOCUSATE SODIUM 250 MG CAPSULE PO SCH ×2 (07:42→20:50)
[2018-11-15] MEDS: LISINOPRIL 20 MG TABLET PO SCH (07:42)
[2018-11-15] MEDS: ENOXAPARIN SODIUM 30 MG/0.3 ML PF SYRINGE SQ SCH ×2 (07:42→20:50)
[2018-11-15] MEDS: AmLODIPine BESYLATE 10 MG TABLET PO SCH (07:43)
[2018-11-15] MEDS: FAMOTIDINE 20 MG TABLET PO SCH ×2 (07:43→20:50)
[2018-11-15 07:52] VITALS: BP 142/82
[2018-11-15 10:08] VITALS: BP 129/89
[2018-11-15 11:04] LABS: BASOPHILS % (AUTO) 1.1 % (0.0-2.0); EOSINOPHILS % (AUTO) 3.1 % (1.0-6.0); HEMATOCRIT 43.8 % (41-53); HEMOGLOBIN 14.5 g/dL (13.5-17.5); LYMPHOCYTES % (AUTO) 27.8 % (22.0-44.0); MEAN CORPUSCULAR HEMOGLOBIN 30.2 pg (26.0-34.0); MEAN CORPUSCULAR HGB CONC 33.2 G/dL (31.0-37.0); MEAN CORPUSCULAR VOLUME 91 fL (80-100); MONOCYTES # (AUTO) 0.9 K/uL (0.1-1.0); MONOCYTES % (AUTO) 8.7 % (2.0-9.0); NEUTROPHILS # (AUTO) 6.3 K/uL (1.8-7.7); NEUTROPHILS % (AUTO) 59.3 % (40.0-70.0); PLATELET COUNT (AUTO) 319 K/uL (150-450); RED BLOOD CELL COUNT(AUTO) 4.82 MIL/uL (4.50-5.90); RED CELL DISTRIBUTION WIDTH 13.5 % (11.5-14.5)
[2018-11-15 11:10] LABS: ANION GAP 8 mmol/L (8-16); CALCIUM, TOTAL 9.1 mg/dL (8.8-10.5); CARBON DIOXIDE 27 mmol/L (22-29); CHLORIDE 93 mmol/L (98-107); CREATININE 0.87 mg/dL (0.60-1.30); GLOMERULAR FILTR. RATE CALC > 60 mL/min (>60); GLUCOSE,RANDOM 120 mg/dL (70-110); POTASSIUM 4.4 mmol/L (3.5-5.1); SODIUM SERUM 128 mmol/L (136-145); UREA NITROGEN, BLOOD 10 mg/dL (7-18)
[2018-11-15 11:14] LABS: D-DIMER 0.33 mg/L FEU (0.00-0.50); PROTHROMBIN TIME 10.5 SEC (9.4-11.6)
[2018-11-15 16:15] VITALS: BP 141/59
[2018-11-15] MEDS: SODIUM CHLORIDE 1 GM TABLET PO SCH ×2 (16:28→20:50)
[2018-11-15 16:55] LABS: GLUCOMETER DEV NAME(LOC) 2WR.1; GLUCOSE,POINT OF CARE 135 MG/DL (70-110)
[2018-11-15] MEDS: TEMAZEPAM 15 MG CAPSULE PO SCH (20:50)
[2018-11-15] MEDS: COLD CREAM, SKIN EMOLLIENT 340 GM JAR TP SCH (20:50)
[2018-11-16 01:46] VITALS: BP 120/70
[2018-11-16 07:16] VITALS: BP 130/90
[2018-11-16] MEDS: NICOTINE 21 MG/24 HOUR PATCH TD SCH (08:29)
[2018-11-16] MEDS: LISINOPRIL 20 MG TABLET PO SCH (08:30)
[2018-11-16] MEDS: CHLORHEXIDINE GLUCONATE 0.12% 15 ML UDCUP ORAL RINSE PO SCH ×2 (08:30→21:35)
[2018-11-16] MEDS: FAMOTIDINE 20 MG TABLET PO SCH ×2 (08:30→21:35)
[2018-11-16] MEDS: ENOXAPARIN SODIUM 30 MG/0.3 ML PF SYRINGE SQ SCH ×2 (08:30→21:35)
[2018-11-16] MEDS: SODIUM CHLORIDE 1 GM TABLET PO SCH ×2 (08:30→21:35)
[2018-11-16] MEDS: DOCUSATE SODIUM 250 MG CAPSULE PO SCH ×2 (08:30→21:35)
[2018-11-16] MEDS: AmLODIPine BESYLATE 10 MG TABLET PO SCH (08:31)
[2018-11-16 16:09] VITALS: BP 109/68
[2018-11-16] MEDS: TEMAZEPAM 15 MG CAPSULE PO SCH (21:35)
[2018-11-16] MEDS: COLD CREAM, SKIN EMOLLIENT 340 GM JAR TP SCH (21:36)
[2018-11-17 00:13] VITALS: BP 125/72
[2018-11-17 07:02] LABS: ANION GAP 8 mmol/L (8-16); CALCIUM, TOTAL 8.9 mg/dL (8.8-10.5); CARBON DIOXIDE 27 mmol/L (22-29); CHLORIDE 99 mmol/L (98-107); CREATININE 0.88 mg/dL (0.60-1.30); GLOMERULAR FILTR. RATE CALC > 60 mL/min (>60); GLUCOSE,RANDOM 87 mg/dL (70-110); POTASSIUM 3.6 mmol/L (3.5-5.1); SODIUM SERUM 134 mmol/L (136-145); UREA NITROGEN, BLOOD 10 mg/dL (7-18)
[2018-11-17 07:20] VITALS: BP 134/84
[2018-11-17] MEDS: AmLODIPine BESYLATE 10 MG TABLET PO SCH (08:01)
[2018-11-17] MEDS: ENOXAPARIN SODIUM 30 MG/0.3 ML PF SYRINGE SQ SCH ×2 (08:01→20:33)
[2018-11-17] MEDS: FAMOTIDINE 20 MG TABLET PO SCH ×2 (08:01→20:33)
[2018-11-17] MEDS: CHLORHEXIDINE GLUCONATE 0.12% 15 ML UDCUP ORAL RINSE PO SCH ×2 (08:01→20:33)
[2018-11-17] MEDS: NICOTINE 21 MG/24 HOUR PATCH TD SCH (08:01)
[2018-11-17] MEDS: LISINOPRIL 20 MG TABLET PO SCH (08:01)
[2018-11-17] MEDS: SODIUM CHLORIDE 1 GM TABLET PO SCH ×2 (08:01→20:33)
[2018-11-17] MEDS: DOCUSATE SODIUM 250 MG CAPSULE PO SCH ×2 (08:01→20:33)
[2018-11-17 15:33] VITALS: BP 128/94
[2018-11-17] MEDS: TEMAZEPAM 15 MG CAPSULE PO SCH (20:33)
[2018-11-17] MEDS: COLD CREAM, SKIN EMOLLIENT 340 GM JAR TP SCH (20:33)
[2018-11-18 03:00] VITALS: BP 116/80
[2018-11-18 07:15] VITALS: BP 136/77
[2018-11-18] MEDS: FAMOTIDINE 20 MG TABLET PO SCH ×2 (08:31→20:21)
[2018-11-18] MEDS: CHLORHEXIDINE GLUCONATE 0.12% 15 ML UDCUP ORAL RINSE PO SCH ×2 (08:31→20:21)
[2018-11-18] MEDS: ENOXAPARIN SODIUM 30 MG/0.3 ML PF SYRINGE SQ SCH ×2 (08:31→20:21)
[2018-11-18] MEDS: DOCUSATE SODIUM 250 MG CAPSULE PO SCH ×2 (08:32→20:21)
[2018-11-18] MEDS: AmLODIPine BESYLATE 10 MG TABLET PO SCH (08:32)
[2018-11-18] MEDS: SODIUM CHLORIDE 1 GM TABLET PO SCH ×2 (08:32→20:21)
[2018-11-18] MEDS: NICOTINE 21 MG/24 HOUR PATCH TD SCH (08:32)
[2018-11-18] MEDS: LISINOPRIL 20 MG TABLET PO SCH (08:32)
[2018-11-18 08:50] VITALS: BP 128/81
[2018-11-18 08:57] VITALS: BP 132/78
[2018-11-18 16:03] VITALS: BP 112/69
[2018-11-18] MEDS: TEMAZEPAM 15 MG CAPSULE PO SCH (20:21)
[2018-11-18] MEDS: COLD CREAM, SKIN EMOLLIENT 340 GM JAR TP SCH (20:21)
[2018-11-19] VITALS (7 sets, daily range): BP systolic 84–139; BP diastolic 54–89
[2018-11-19] MEDS: AmLODIPine BESYLATE 10 MG TABLET PO SCH (09:30)
[2018-11-19] MEDS: FAMOTIDINE 20 MG TABLET PO SCH ×2 (09:30→21:05)
[2018-11-19] MEDS: SODIUM CHLORIDE 1 GM TABLET PO SCH ×2 (09:30→21:05)
[2018-11-19] MEDS: DOCUSATE SODIUM 250 MG CAPSULE PO SCH ×2 (09:30→21:06)
[2018-11-19] MEDS: LISINOPRIL 20 MG TABLET PO SCH (09:32)
[2018-11-19] MEDS: CHLORHEXIDINE GLUCONATE 0.12% 15 ML UDCUP ORAL RINSE PO SCH (09:32)
[2018-11-19] MEDS: ENOXAPARIN SODIUM 30 MG/0.3 ML PF SYRINGE SQ SCH ×2 (09:58→21:06)
[2018-11-19] MEDS: NICOTINE 21 MG/24 HOUR PATCH TD SCH (09:59)
[2018-11-19 11:47] LABS: ANION GAP 5 mmol/L (8-16); CALCIUM, TOTAL 9.2 mg/dL (8.8-10.5); CARBON DIOXIDE 30 mmol/L (22-29); CHLORIDE 102 mmol/L (98-107); CREATININE 0.88 mg/dL (0.60-1.30); GLOMERULAR FILTR. RATE CALC > 60 mL/min (>60); GLUCOSE,RANDOM 77 mg/dL (70-110); SODIUM SERUM 137 mmol/L (136-145); UREA NITROGEN, BLOOD 9 mg/dL (7-18)
[2018-11-19] MEDS: TEMAZEPAM 15 MG CAPSULE PO SCH (21:06)
[2018-11-19] MEDS: COLD CREAM, SKIN EMOLLIENT 340 GM JAR TP SCH (21:06)
[2018-11-20 07:18] VITALS: BP 134/92
[2018-11-20 07:24] VITALS: BP 134/92
[2018-11-20 07:25] VITALS: BP 136/99
[2018-11-20 07:26] VITALS: BP 126/99
[2018-11-20] MEDS: DOCUSATE SODIUM 250 MG CAPSULE PO SCH ×2 (08:42→20:35)
[2018-11-20] MEDS: FAMOTIDINE 20 MG TABLET PO SCH ×2 (08:42→20:35)
[2018-11-20] MEDS: LISINOPRIL 20 MG TABLET PO SCH (08:42)
[2018-11-20] MEDS: AmLODIPine BESYLATE 10 MG TABLET PO SCH (08:42)
[2018-11-20] MEDS: ENOXAPARIN SODIUM 30 MG/0.3 ML PF SYRINGE SQ SCH (08:43)
[2018-11-20] MEDS: NICOTINE 21 MG/24 HOUR PATCH TD SCH (08:44)
[2018-11-20 18:22] VITALS: BP 132/93
[2018-11-20] MEDS: COLD CREAM, SKIN EMOLLIENT 340 GM JAR TP SCH (20:35)
[2018-11-20] MEDS: TEMAZEPAM 15 MG CAPSULE PO SCH (20:35)
[2018-11-20 20:40] VITALS: BP 134/94
[2018-11-21 04:00] VITALS: BP 121/88
[2018-11-21 07:29] VITALS: BP 131/90
[2018-11-21] MEDS: NICOTINE 21 MG/24 HOUR PATCH TD SCH (07:42)
[2018-11-21] MEDS: ENOXAPARIN SODIUM 40 MG/0.4 ML PF SYRINGE SQ SCH (07:42)
[2018-11-21] MEDS: LISINOPRIL 20 MG TABLET PO SCH (07:43)
[2018-11-21] MEDS: AmLODIPine BESYLATE 10 MG TABLET PO SCH (07:44)
[2018-11-21] MEDS: FAMOTIDINE 20 MG TABLET PO SCH ×2 (07:44→20:35)
[2018-11-21] MEDS: DOCUSATE SODIUM 250 MG CAPSULE PO SCH ×2 (07:44→20:35)
[2018-11-21 10:07] VITALS: BP 125/87
[2018-11-21 10:10] VITALS: BP 135/98
[2018-11-21 15:18] VITALS: BP 119/77
[2018-11-21] MEDS: COLD CREAM, SKIN EMOLLIENT 340 GM JAR TP SCH (20:35)
[2018-11-21] MEDS: TEMAZEPAM 15 MG CAPSULE PO SCH (20:35)
[2018-11-21 23:55] VITALS: BP 132/82
[2018-11-22 07:18] VITALS: BP_SYST 123; BP_SYST 137; BP_DIAS 77; BP_DIAS 91
[2018-11-22] MEDS: NICOTINE 21 MG/24 HOUR PATCH TD SCH (07:47)
[2018-11-22] MEDS: ENOXAPARIN SODIUM 40 MG/0.4 ML PF SYRINGE SQ SCH (07:48)
[2018-11-22] MEDS: LISINOPRIL 20 MG TABLET PO SCH (07:49)
[2018-11-22] MEDS: DOCUSATE SODIUM 250 MG CAPSULE PO SCH ×2 (07:49→20:11)
[2018-11-22] MEDS: FAMOTIDINE 20 MG TABLET PO SCH ×2 (07:49→20:11)
[2018-11-22] MEDS: AmLODIPine BESYLATE 10 MG TABLET PO SCH (07:49)
[2018-11-22 10:44] VITALS: BP 132/77
[2018-11-22 10:50] VITALS: BP 136/100
[2018-11-22 15:50] VITALS: BP 143/55
[2018-11-22] MEDS: ATORVASTATIN CALCIUM 40 MG TABLET PO SCH (20:11)
[2018-11-22] MEDS: TEMAZEPAM 15 MG CAPSULE PO SCH (20:11)
[2018-11-22] MEDS: COLD CREAM, SKIN EMOLLIENT 340 GM JAR TP SCH (20:11)
[2018-11-23] MEDS ORDERED: ATOR40TA28 PO (00:50)
[2018-11-23 00:53] VITALS: BP 121/82
[2018-11-23 07:38] VITALS: BP_SYST 102; BP_SYST 139; BP_DIAS 74; BP_DIAS 91
[2018-11-23] MEDS: FAMOTIDINE 20 MG TABLET PO SCH ×2 (08:09→20:44)
[2018-11-23] MEDS: NICOTINE 21 MG/24 HOUR PATCH TD SCH (08:09)
[2018-11-23] MEDS: AmLODIPine BESYLATE 10 MG TABLET PO SCH (08:09)
[2018-11-23] MEDS: LISINOPRIL 20 MG TABLET PO SCH (08:09)
[2018-11-23] MEDS: ENOXAPARIN SODIUM 40 MG/0.4 ML PF SYRINGE SQ SCH (08:09)
[2018-11-23] MEDS: DOCUSATE SODIUM 250 MG CAPSULE PO SCH ×2 (08:09→20:44)
[2018-11-23 13:15] VITALS: BP 105/80
[2018-11-23 13:19] VITALS: BP 105/65
[2018-11-23 15:29] VITALS: BP 110/78
[2018-11-23] MEDS: ATORVASTATIN CALCIUM 40 MG TABLET PO SCH (20:44)
[2018-11-23] MEDS: TEMAZEPAM 15 MG CAPSULE PO SCH (20:44)
[2018-11-23] MEDS: COLD CREAM, SKIN EMOLLIENT 340 GM JAR TP SCH (20:44)
[2018-11-24 00:45] VITALS: BP 120/79
[2018-11-24 07:26] VITALS: BP 126/64
[2018-11-24] MEDS: FAMOTIDINE 20 MG TABLET PO SCH (08:13)
[2018-11-24] MEDS: DOCUSATE SODIUM 250 MG CAPSULE PO SCH (08:13)
[2018-11-24] MEDS: AmLODIPine BESYLATE 10 MG TABLET PO SCH (08:13)
[2018-11-24] MEDS: LISINOPRIL 20 MG TABLET PO SCH (08:14)
[2018-11-24] MEDS: ENOXAPARIN SODIUM 40 MG/0.4 ML PF SYRINGE SQ SCH (08:15)
[2018-11-24] MEDS: NICOTINE 21 MG/24 HOUR PATCH TD SCH (08:15)
[2018-11-24 11:41] VITALS: BP 126/64
[2018-11-24] MEDS ORDERED: TEMA15CA5 PO ×2 (11:44→11:45)
== END 2018-11-24 13:20 | disposition home health service (06) | DRG 64 ==
LOC: 2WR 19:15
DX: I61.8 Other nontraumatic intracerebral hemorrhage (principal); E43 Unspecified severe protein-calorie malnutrition; G81.01 Flaccid hemiplegia affecting right dominant side; G91.9 Hydrocephalus, unspecified; R47.01 Aphasia; I16.1 Hypertensive emergency; I82.499 Acute embolism and thrombosis of other specified deep vein of unspecified lower extremity; E87.1 Hypo-osmolality and hyponatremia; E78.5 Hyperlipidemia, unspecified; I10 Essential (primary) hypertension; N31.9 Neuromuscular dysfunction of bladder, unspecified; R13.12 Dysphagia, oropharyngeal phase; R73.03 Prediabetes; Z93.1 Gastrostomy status; R47.1 Dysarthria and anarthria; K02.9 Dental caries, unspecified; R41.0 Disorientation, unspecified; R45.1 Restlessness and agitation; Z91.013 Allergy to seafood; R94.5 Abnormal results of liver function studies; I44.30 Unspecified atrioventricular block; I49.3 Ventricular premature depolarization; Z71.6 Tobacco abuse counseling
CPT/HCPCS: 70450; 74018; 74230; 85007; 85379; 87081; 90686; 92507; 92508; 92523; 92526; 92611; 93005; 93970; 93971; 97032; 97112; 97116; 97150; 97162; 97167; 97530; 97535; 99366; J1650

== ENCOUNTER 2019-04-20 10:39 | Emergency (ER) | payer OTHER ==
[~2019-04-20] VITALS: Ht 175.3 cm; Wt 61.4 kg
[~2019-04-20 10:39] MED LIST: AMLO-512 PO; ATOR40TA28 PO; DICL2100G TP; DOCU250C91 PO; FAMO20 PO; LISI-662 PO; NICO-704 TD; TEMA15CA5 PO
[2019-04-20] MEDS ORDERED: SODIUM CHLORIDE 0.9% 1,000 ML IV ONE (11:30)
[2019-04-20 11:40] LABS: EOSINOPHILS % (AUTO) 7.3 % (1.0-6.0); HEMATOCRIT 46.7 % (41-53); HEMOGLOBIN 15.6 g/dL (13.5-17.5); LYMPHOCYTES # (AUTO) 3.7 K/uL (1.0-4.8); LYMPHOCYTES % (AUTO) 33.9 % (22.0-44.0); MEAN CORPUSCULAR HEMOGLOBIN 30.1 pg (26.0-34.0); MEAN CORPUSCULAR HGB CONC 33.3 G/dL (31.0-37.0); MEAN CORPUSCULAR VOLUME 90 fL (80-100); MONOCYTES # (AUTO) 0.9 K/uL (0.1-1.0); MONOCYTES % (AUTO) 8.6 % (2.0-9.0); NEUTROPHILS # (AUTO) 5.4 K/uL (1.8-7.7); NEUTROPHILS % (AUTO) 49.2 % (40.0-70.0); PLATELET COUNT (AUTO) 283 K/uL (150-450); RED BLOOD CELL COUNT(AUTO) 5.17 MIL/uL (4.50-5.90); RED CELL DISTRIBUTION WIDTH 13.9 % (11.5-14.5)
[2019-04-20 11:55] LABS: ALBUMIN 3.7 g/dL (3.4-5.0); BILIRUBIN,TOTAL 0.3 mg/dL (0.1-1.0); CALCIUM, TOTAL 9.4 mg/dL (8.8-10.5); CREATININE 1.88 mg/dL (0.60-1.30); POTASSIUM 4.2 mmol/L (3.5-5.1)
[2019-04-20 13:07] VITALS: BP 118/78
== END 2019-04-20 13:11 | disposition left against medical advice (07) ==
LOC: EMS 10:41
DX: E86.0 Dehydration (principal); I10 Essential (primary) hypertension; K21.9 Gastro-esophageal reflux disease without esophagitis; Z91.013 Allergy to seafood; Z79.899 Other long term (current) drug therapy
CPT/HCPCS: 36415; 71045; 80053; 85025; 93005; 99285; J7030